=== PATIENT | male | born 1970 ===

== ENCOUNTER 2024-10-01 22:04 | Emergency (ER) | payer OTHER ==
[~2024-10-01] VITALS: Ht 167.6 cm; Wt 74.8 kg
[2024-10-01 22:15] VITALS: BP 119/78
[2024-10-02 00:29] LABS: BASOPHILS ABSOLUTE AUTO 0.05 K/mm3 (0.00-0.23); BASOPHILS PERCENT AUTO 1 % (0-2); EOSINOPHILS ABSOLUTE AUTO 0.07 K/mm3 (0.00-0.68); EOSINOPHILS PERCENT AUTO 1 % (0-6); Hematocrit 43.0 % (37.0-53.0); Hemoglobin 14.8 g/dL (13.5-17.5); IMMATURE GRAN ABSOLUTE AUTO 0.07 K/mm3 (0.00-0.10); IMMATURE GRAN PERCENT AUTO 1 % (0-1); LYMPHOCYTES ABSOLUTE AUTO 1.00 K/mm3 (0.84-5.20); LYMPHOCYTES PERCENT AUTO 10 % (21-46); MONOCYTES ABSOLUTE AUTO 0.27 K/mm3 (0.16-1.47); MONOCYTES PERCENT AUTO 3 % (4-13); Mean Corpuscular HGB Conc 34.4 g/dL (31.5-36.5); Mean Corpuscular Volume 90 fL (80-100); NEUTROPHILS ABSOLUTE AUTO 8.74 K/mm3 (1.96-9.15); NEUTROPHILS PERCENT AUTO 86 % (41-73); NRBC ABSOLUTE 0.00 K/mm3 (0.00-0.02); NRBC Auto 0.0 /100 WBC (0.0-0.2); Platelet Count 254 K/mm3 (150-400); RDW Coefficient Variation 13.5 % (11.7-14.2); RDW Standard Deviation 44.4 fL (35.1-46.3)
[2024-10-02 00:53] LABS: Anion Gap 9.0 mmol/L (3-11); Blood Urea Nitrogen 9.0 mg/dL (8-24); CO2, Blood 23.0 mmol/L (21-32); Calcium, Blood 8.6 mg/dL (8.5-10.1); Chloride, Blood 111.0 mmol/L (98-108); Creatinine, Blood 0.63 mg/dL (0.60-1.20); Ethanol (Alcohol), Blood, Med 220.0 mg/dL; Glucose, Blood 129.0 mg/dL (70-99); Potassium, Blood 4.1 mmol/L (3.5-5.5); Sodium, Blood 139.0 mmol/L (136-145)
== END 2024-10-02 02:45 | disposition home or self-care (01) ==
LOC: ER 22:04
PROVIDERS: Student in an Organized Health Care Education/Training Program
DX: M54.2 Cervicalgia (principal); G89.29 Other chronic pain; F10.129 Alcohol abuse with intoxication, unspecified; Y90.8 Blood alcohol level of 240 mg/100 ml or more
CPT/HCPCS: 70450; 72125; 80048; 80320; 85025; 99285-25

== ENCOUNTER 2024-10-18 07:45 | Emergency (ER) | payer OTHER ==
[~2024-10-18] VITALS: Ht 170.2 cm; Wt 68.0 kg
[2024-10-18 08:14] VITALS: BP 153/92
== END 2024-10-18 08:20 | disposition home or self-care (01) ==
LOC: ER 07:45
DX: Z02.89 Encounter for other administrative examinations (principal); Z59.89 Other problems related to housing and economic circumstances
CPT/HCPCS: 99281